=== PATIENT | female | born 1995 | race Two or more races ===

== ENCOUNTER 2022-03-19 14:52 | Outpatient (CLI) | payer OTHER | END 2022-03-19 16:41 | disposition home or self-care (01) | LOC: PRENATAL 14:52 | PROVIDERS: ATTEND Obstetrics & Gynecology Maternal & Fetal Medicine | DX: O36.80X0 Pregnancy with inconclusive fetal viability, not applicable or unspecified (principal); Z36 Encounter for antenatal screening of mother; O99.210 Obesity complicating pregnancy, unspecified trimester; Z3A.12 12 weeks gestation of pregnancy ==

== ENCOUNTER 2022-04-20 10:24 | Emergency (ER) | payer OTHER ==
[~2022-04-20] VITALS: Ht 162.6 cm; Wt 108.0 kg
[2022-04-20] MEDS ORDERED: PRENATAL + DHA1 EAC1 PO (10:38)
== END 2022-04-20 14:27 | disposition home or self-care (01) ==
LOC: ER 10:24
DX: O26.892 Other specified pregnancy related conditions, second trimester (principal); Z3A.16 16 weeks gestation of pregnancy; V49.9XXA Car occupant (driver) (passenger) injured in unspecified traffic accident, initial encounter; Y93.9 Activity, unspecified; Y92.9 Unspecified place or not applicable

== ENCOUNTER 2022-05-13 13:18 | Outpatient (CLI) | payer OTHER ==
[~2022-05-13 13:18] MED LIST: PRENATAL + DHA1 EAC1 PO
== END 2022-05-13 15:45 | disposition home or self-care (01) ==
LOC: PRENATAL 13:18
PROVIDERS: ATTEND Obstetrics & Gynecology Maternal & Fetal Medicine
DX: O35.9XX0 Maternal care for (suspected) fetal abnormality and damage, unspecified, not applicable or unspecified (principal); O99.210 Obesity complicating pregnancy, unspecified trimester; Z14.8 Genetic carrier of other disease

== ENCOUNTER 2022-08-07 13:35 | Outpatient (CLI) | payer OTHER | END 2022-08-07 14:34 | disposition home or self-care (01) | LOC: PRENATAL 13:35 | PROVIDERS: ATTEND Obstetrics & Gynecology Maternal & Fetal Medicine | DX: O26.849 Uterine size-date discrepancy, unspecified trimester (principal); O36.8199 Decreased fetal movements, unspecified trimester, other fetus; O99.210 Obesity complicating pregnancy, unspecified trimester; Z14.8 Genetic carrier of other disease ==

== ENCOUNTER 2022-09-09 11:30 | Inpatient (IN) | payer OTHER ==
[~2022-09-09] VITALS: Ht 170.2 cm; Wt 118.8 kg
== END 2022-09-19 14:48 | disposition home or self-care (01) | DRG 807 ==
LOC: LDR 09-17 13:54 → OB/GYN 09-18 15:16 → LDR 09-30 13:15
PROVIDERS: ADMIT Obstetrics & Gynecology; ATTEND Obstetrics & Gynecology
PROC: 10E0XZZ Delivery of Products of Conception, External Approach (ICD-10-PCS; principal; 2022-09-17)
PROC: 0W8NXZZ Division of Female Perineum, External Approach (ICD-10-PCS; 2022-09-17)
PROC: 4A1HXCZ Monitoring of Products of Conception, Cardiac Rate, External Approach (ICD-10-PCS; 2022-09-17)
DX: O80 Encounter for full-term uncomplicated delivery (principal); Z37.0 Single live birth; Z3A.38 38 weeks gestation of pregnancy; Z20.822 Contact with and (suspected) exposure to COVID-19

== ENCOUNTER 2024-03-24 09:21 | Outpatient (CLI) | payer OTHER | END 2024-03-24 09:22 | disposition home or self-care (01) | LOC: PRENATAL 09:21 | PROVIDERS: ATTEND Obstetrics & Gynecology Maternal & Fetal Medicine | DX: O44.00 Complete placenta previa NOS or without hemorrhage, unspecified trimester (principal); Z14.8 Genetic carrier of other disease; Z3A.21 21 weeks gestation of pregnancy ==

== ENCOUNTER 2024-05-22 09:48 | Outpatient (CLI) | payer OTHER | END 2024-05-22 09:49 | disposition home or self-care (01) | LOC: PRENATAL 09:48 | PROVIDERS: ATTEND Obstetrics & Gynecology Maternal & Fetal Medicine | DX: O26.849 Uterine size-date discrepancy, unspecified trimester (principal); O36.60X0 Maternal care for excessive fetal growth, unspecified trimester, not applicable or unspecified; Z14.8 Genetic carrier of other disease; Z3A.31 31 weeks gestation of pregnancy ==

== ENCOUNTER 2024-06-30 09:07 | Outpatient (CLI) | payer OTHER | END 2024-06-30 09:08 | disposition home or self-care (01) | LOC: PRENATAL 09:07 | PROVIDERS: ATTEND Obstetrics & Gynecology Maternal & Fetal Medicine | DX: O26.849 Uterine size-date discrepancy, unspecified trimester (principal); O36.8199 Decreased fetal movements, unspecified trimester, other fetus; Z14.8 Genetic carrier of other disease; Z3A.34 34 weeks gestation of pregnancy ==